=== PATIENT | male | born 1965 | race Caucasian/White ===

== ENCOUNTER 2021-03-07 14:19 | Emergency (ER) | payer OTHER ==
[2021-03-07 14:28] VITALS: BP 138/82
[2021-03-07] MEDS ORDERED: ACETAMINOPHEN 325 MG TABLET PO STA (15:14)
--- NOTE | 2021-03-07 15:14 | ED Physician Documentation ---
History of Present Illness - Stated complaint Stated Complaint: RT SHOULD PX - Chief complaint Chief Complaint: Trauma Ext - History obtained from History obtained from: Patient, Family () - Additonal information Additional information: 55-year-old man presents with acute right shoulder pain after falling off a scooter today. No pain with aching, constant, sudden onset when he fell, nonradiating, worse with range of motion, associated with right feeling of deformity.Sensory and on my motor intact distally.No other injury Review of Systems Skin: denies: Lesions, Abrasion (s), Laceration (s) Musculoskeletal: reports: Extremity pain, Joint pain Neurologic: denies: Focal weakness, Numbness PD ED PE NORMAL - Vitals Vital signs reviewed: Yes - General General: Alert and oriented X 3, No acute distress, Well developed/nourished - HEENT HEENT: Atraumatic, PERRL, EOMI - Neck Neck: Supple, no meningeal sign, No bony TTP - Derm Derm: Normal color, Warm and dry - Extremities Extremities: Other (R shoulder with palpable deformity. tender with rom. 2+ BL radial pulses. normal sensation and strength in hands. elbow ROM intact. nontender to arm or forearm) - Neuro Neuro: No motor deficit, No sensory deficit Results - Vitals Vitals: Vital Signs - 24 hr 03/07/21 14:24 Temperature 36.6 C Heart Rate 70 Respiratory 16 Rate Blood Pressure 138/82 H O2 Saturation 99 Oxygen O2 Source Room air PD MEDICAL DECISION MAKING - ED course ED course: 55-year-old man presents with right shoulder deformity. Will obtain x-ray and reevaluate. Patient declining pain medication, requesting Tylenol. Impression 1. Acromioclavicular joint separation Departure - Departure Disposition: 01 Home, Self Care Condition: Good Instructions: Understanding AC Joint Sprain Comments: You were seen in the emergency department for shoulder pain that appears to be a possible acromioclavicular joint separation. You should follow-up with an orthopedist in 1 week. They may recommend MRI, xrays, and/or further imaging. Do range of motion exercises with the shoulder as tolerated. Apply ice for 20 minutes every hour. Take ibuprofen 600 mg every 6 hours as needed on a full stomach for pain.Return to the emergency department if you experience any new or worsening symptoms or have other concerns. Forms: Activity restrictions
--- NOTE | 2021-03-07 15:20 | XRAY Report ---
PROCEDURE: Shoulder 2 View RT INDICATIONS: fall; clinical concern for fx TECHNIQUE: 2 views of the shoulder were acquired. COMPARISON: None. FINDINGS: Bones: No fractures or dislocations. The right distal clavicle is mildly high riding in relation to the acromion. No suspicious bony lesions. Visualized ribs appear intact. Soft tissues: No suspicious soft tissue calcifications. The visualized lung demonstrates a normal a ppearance. IMPRESSION: No acute fractures or dislocations can be seen. Possible acromioclavicular separation. If it would be helpful for clinical management decision making , please consider a follow-up bilateral shoulder study, performed without and with weights. Reviewed by: Randy Martel MD on 03/07/2021 2:19 PM ALEX Approved by: Randy Martel MD on 03/07/2021 2:19 PM ALEX Station ID: [id number]
== END 2021-03-07 15:51 | disposition home or self-care (01) ==
LOC: ED 14:19
DX: S43.101A Unspecified dislocation of right acromioclavicular joint, initial encounter (principal); V29.3XXA Motorcycle rider (driver) (passenger) injured in unspecified nontraffic accident, initial encounter; Y93.55 Activity, bike riding
CPT/HCPCS: 73030; 99282; 99283; A9270